=== PATIENT | female | born 1995 | race Caucasian/White ===

== ENCOUNTER 2018-02-12 19:10 | Emergency (ER) | payer BC ==
[~2018-02-12] VITALS: Ht 162.6 cm; Wt 77.3 kg
[2018-02-12 19:15] VITALS: BP 137/85; TEMP 98.1
[2018-02-12] MEDS ORDERED: ORSYTHIA 0.02 M1 TAB PO (19:18)
[2018-02-12] MEDS ORDERED: NAPROSYN500 MG PO (19:18)
[2018-02-12] MEDS ORDERED: CEPHALEXIN500 M1 PO (19:18)
[2018-02-12] MEDS ORDERED: NORCO 325 MG-51 TAB PO (19:43)
[2018-02-12] MEDS ORDERED: BACTRIM DS 8001 TAB PO (19:43)
[2018-02-12 19:50] VITALS: PULSE 90
== END 2018-02-12 19:51 | disposition home or self-care (01) ==
LOC: COL.ER 19:10
DX: L02.415 Cutaneous abscess of right lower limb (principal); Z90.49 Acquired absence of other specified parts of digestive tract; Z98.890 Other specified postprocedural states